=== PATIENT | female | born 1965 | race Caucasian/White ===

== ENCOUNTER 2020-02-19 08:03 | Observation (INO) ==
--- NOTE | 2020-02-07 08:25 | ANES ---
Anesthesia Pre Procedure Eval HOME MEDICATIONS acetaminophen 500 mg tablet 1,000 mg PO TID PRN tab 01/16/20 [Last Taken Unknown] albuterol sulfate 90 mcg/actuation aerosol inhaler 2 inh IH Q4H PRN 01/16/20 [Last Taken Unknown] atorvastatin 20 mg tablet 20 mg PO HS tab 01/16/20 [Last Taken Unknown] brexpiprazole 4 mg tablet 4 mg PO DAILY tab 01/16/20 [Last Taken Unknown] budesonide-formoterol HFA 80 mcg-4.5 mcg/actuation aerosol inhaler 2 inh IH BID g 01/16/20 [Last Taken Unknown] bupropion HCl 150 mg 24 hr tablet, extended release 150 mg PO QAM tab 01/16/20 [Last Taken Unknown] buspirone 15 mg tablet 15 mg PO TID tab 01/16/20 [Last Taken Unknown] doxepin 50 mg capsule 150 mg PO HS cap 01/16/20 [Last Taken Unknown] estradiol 2 mg tablet 2 mg PO DAILY tab 01/16/20 [Last Taken Unknown] famotidine 20 mg tablet 20 mg PO BID 01/16/20 [Last Taken Unknown] fluoride (sodium) 1.1 % dental gel 1 applic PO BID g 01/16/20 [Last Taken Un known] furosemide 20 mg tablet 40 mg PO BID tab 01/16/20 [Last Taken Unknown] gabapentin 400 mg capsule 400 mg PO TID cap 01/16/20 [Last Taken Unknown] lamotrigine 150 mg tablet 150 mg PO BID tab 01/16/20 [Last Taken Unknown] levothyroxine 100 mcg tablet 100 mcg PO DAILY tab 01/16/20 [Last Taken Unknown] mirabegron 50 mg tablet,extended release 24 hr 50 mg PO DAILY tab 01/16/20 [Last Taken Unknown] montelukast 10 mg tablet 10 mg PO DAILY tab 01/16/20 [Last Taken Unknown] tramadol 50 mg tablet 50 mg PO BID tab 01/16/20 [Last Taken Unknown] vilazodone 40 mg tablet 40 mg PO DAILY tab 01/16/20 [Last Taken Unknown] Allergies/Adverse Reactions: Allergies Allergy/AdvReac Type Severity Reaction Status Date / Time acetaminophen [From Percocet] Allergy Mild Nausea Verified 01/16/20 13:40 oxycodone HCl [From Percocet] Allergy Mild Nausea Verified 01/16/20 13:40 propoxyphene HCl Allergy Mild Nausea Verified 01/16/20 13:40 [From Darvon] - Planned Procedure Planned Procedure: L Arthroplasty Total Knee Medication List Reviewed:: Yes Allergies Verified: Yes Medical History (Last Reviewed 02/07/20 @ 08:24 by Darwin Chavis CRNA) Insomnia Onset Date: Unknown Anxiety Onset Date: Unknown Asthma Onset Date: Unknown Bipolar disorder Onset Date: Unknown COPD (chronic obstructive pulmonary disease) Onset Date: Unknown Depression Onset Date: Unknown GERD (gastroesophageal reflux disease) Onset Date: Unknown Hyperlipidemia Onset Date: Unknown Hypothyroidism Onset Date: Unknown Nerve pain Onset Date: Unknown Sleep apnea Onset Date: Unknown Surgical History (Last Reviewed 02/07/20 @ 08:24 by Darwin Chavis CRNA) H/O arthroscopy of left knee Onset Date: Unknown Dr. Gonsalez H/[place] arthroscopy of right knee Onset Date: Unknown Dr. Gonsalez H/O laparoscopy Onset Date: Unknown History of appendectomy Onset Date: ~1982 History of cholecystectomy Onset Date: ~2014 History of hysterectomy Onset Date: Unknown Family History (Last Reviewed 02/07/20 @ 08:24 by Darwin Chavis CRNA) Father , age 85 Heart disease Alzheimers disease Dementia Colon cancer Mother Heart disease - Family Anesthesia History Family History:: no untoward family reactions to anesthesia - Airway/Neck/Teeth Teeth Condition: intact - Respiratory Respiratory History: asthma, COPD Smoking Status: Former smoker Sleep Apnea currently treated: Yes Sleep Apnea by current assessment: Yes - Cardiovascular Cardiac History: hyperlipidemia Tolerate Activity: Fair - Gastrointestinal NPO since: mn - Anesthesia Assessment and Plan ASA Class: PS, III Anesthesia Type Plan: Spinal - adductor canal block
[~2020-02-19 08:03] MED LIST: MORPHINE SULFATE 15 MG TABLET.SA PO PRN; ROPIVACAINE HCL/PF 100 MG, EPINEPHrine 0.2 MG, KETOROLAC TROMETHAMINE 30 MG in NORMAL S... IJ PRN; TRANEXAMIC ACID 1,000 MG in NORMAL SALINE 100 ML IV PRN; ceFAZolin SODIUM 1 GM VIAL IV PRN
[2020-02-19] MEDS: RINGER'S SOLUTION,LACTATED 1,000 ML IV PRN ×3 (08:38→13:00)
[2020-02-19] MEDS ORDERED: PROPOFOL VIAL IV ONE (08:57)
[2020-02-19] MEDS ORDERED: LIDOCAINE HCL 20 ML VIAL ONE (08:57)
[2020-02-19] MEDS ORDERED: fentaNYL CITRATE/PF 50 MCG/ML AMPUL ONE (08:57)
[2020-02-19] MEDS ORDERED: ONDANSETRON HCL/PF 2 MG/ML VIAL ONE (08:57)
[2020-02-19] MEDS ORDERED: BUPIVACAINE HCL/EPINEPHRINE 50 ML VIAL ONE (08:58)
[2020-02-19] MEDS ORDERED: ceFAZolin SODIUM 1 GM VIAL ONE (09:04)
[2020-02-19] MEDS ORDERED: HYDROmorphone HCL 2 MG/ML VIAL IV PRN (10:00)
[2020-02-19] MEDS ORDERED: NALOXONE HCL 0.4 MG/ML VIAL IV PRN (10:00)
[2020-02-19] MEDS ORDERED: diphenhydrAMINE HCL 50 MG/ML VIAL IV PRN ×2 (10:00→12:44)
[2020-02-19] MEDS ORDERED: PROCHLORPERAZINE EDISYLATE 5 MG/ML VIAL IV PRN (10:00)
[2020-02-19] MEDS ORDERED: ONDANSETRON HCL/PF 2 MG/ML VIAL IV PRN ×2 (10:00→12:44)
[2020-02-19] MEDS ORDERED: ROCURONIUM BROMIDE 10 MG/ML VIAL ONE (11:34)
[2020-02-19] MEDS ORDERED: HYDROmorphone HCL 2 MG/ML VIAL ONE (11:34)
[2020-02-19] MEDS ORDERED: GLYCOPYRROLATE 0.2 MG/ML VIAL ONE (12:40)
[2020-02-19] MEDS ORDERED: NEOSTIGMINE METHYLSULFATE 1 MG/ML VIAL ONE (12:40)
[2020-02-19] MEDS ORDERED: ACETAMINOPHEN 500 MG TABLET PO PRN (12:44)
[2020-02-19] MEDS ORDERED: DEXTROSE 5%-LACTATED RINGERS 1,000 ML IV PRN (12:44)
[2020-02-19] MEDS ORDERED: ZOLPIDEM TARTRATE 5 MG TABLET PO PRN (12:44)
[2020-02-19] MEDS ORDERED: MORPHINE SULFATE 2 MG/ML DISP.SYRIN IV PRN (12:44)
[2020-02-19] MEDS ORDERED: MAG HYDROX/ALUMINUM HYD/SIMETH 30 ML UDC PO PRN (12:44)
[2020-02-19] MEDS ORDERED: MAGNESIUM HYDROXIDE 30 ML UDC PO PRN (12:44)
--- NOTE | 2020-02-19 12:44 | OR ---
Operative Report - Dictated Report Narrative: Date: 02/19/2020 Preoperative diagnosis: Left knee degenerative joint disease. Postoperative diagnosis: Left knee degenerative joint disease. Procedure: Left total knee arthroplasty. Surgeon: David Foster M.D. Roll Off Driver: Levi Muñoz PA-C (provided and essential set of skilled, educated hands that assisted with transfer, positioning, prepping, draping, manipulation, retraction, placement of jigs, injection, insertion of implants, irrigation, closure wounds, and dressings all of which could not be performed by the available surgical crew) Anesthesia: General with regional block and local periarticular joint injection. Complications: None Specimens: Bone. Estimated blood loss: 50 mL Tourniquet time: 100 Minutes at 350 millimeters of mercury. Retained implants: Depuy Attune size 4 left lugged cemented posterior stabilized femoral component. Size 5 fixed-bearing cemented tibial platform. 4 by 5 millimeter posterior stabilized cross-linked tibial insert. 38 millimeter medialized patella button. Indications: Mrs. Morales is a 55-year-old female who has had longstanding left knee pain and arthrosis. This patient was followed in my clinic for period of time with significant complaints of left knee pain consistent with arthritic changes. She had failed conservative measures including, but not limited to, activity modification, passage of time, medications, and other conservative measures. Patient wished to proceed with surgical treatment. The risks, benefits, and alternatives were discussed in clinic. The risks of , blood clots, bleeding, infection, nerve/tendon blood vessel/ injury, malposition of components, intraoperative fracture, postoperative limited range of motion, persistent pain, failure of components, and need for additional procedures. Patient wished to proceed consent was obtained after answering all questions. Procedure: After marking the correct extremity on the floor, the patient was taken to the operating room. A timeout was performed. IV antibiotics consisting of Ancef were administered prior to the procedure. A regional followed by spinal anesthetic was induced by anesthesia, per my request, on the operative table with all bony prominences well-padded. Lowry catheter was placed, and a bump was placed under the operative side buttock. SCDs and LAI hose were utilized on the nonoperative leg. A well-padded tourniquet was applied to the operative thigh. The operative leg was then pre-scrubbed with alcohol, prepped, and draped in a standard sterile fashion. After exsanguinating the extremity with an Esmarch bandage, the tourniquet was inflated. After marking out the anterior knee for standard incision centered over the patella, the skin was incised and dissected down to the joint retinaculum. The joint retinaculum was marked out as well as the horizontal axis of the patella, and a standard medial parapatellar arthrotomy was then made. The most proximal aspect of the quadriceps tendon and the patella tendon insertion were protected from release. A partial synovectomy was performed as well as a resection of the infrapatellar fat pad. The distal femoral fat pad proximal to the trochlea was also resected using cautery. The soft tissues were elevated off the medial aspect of the proximal tibia using a Strong elevator ensuring that we did not transect the medial collateral ligament. Upon initial evaluation range of motion was approximately 0 degrees to 110 degrees of flexion. There were signs of advanced arthrosis in the medial, lateral, and patellofemoral joint spaces. There were large marginal osteophytes which were removed with a rongeur. The knee was hyperflexed and the patella was tucked laterally. Protecting the surrounding soft tissues with Homans, an entry drill was placed down the femoral canal using Whitesides line for guidance into the entry point. The intramedullary femoral alignment howard was utilized in order to cut the distal femur in 5 degrees of valgus resecting 10 millimeters of bone. Next the distal femur was sized to a size 4. A posterior referencing guide was utilized to place the distal femoral cutting block in 3 degrees of external rotation. This was pinned into place. The rotation was confirmed both visually and based on anatomic landmarks. The 4 in 1 cutting jig of the appropriate size was utilized in order to make all bony cuts. The lisy wing was used to ensure no notching. Retractors were utilized in order to protect surrounding soft tissues. This cut did not result in any excessive notching. We then cut the box centered over the distal femur. This allowed for resection of the anterior and posterior cruciate ligaments. I then turned my attention to the preparation of the tibia. Using an extra medullary tibial alignment howard, 3 millimeters of bone was resected off the medial articular surface. This was made perpendicular to the mechanical axis of the joint with the alignment howard centered over the ankle mortise. The alignment howard was checked and was noted to be parallel to the mechanical axis, centered over the medial one third of the tibial tubercle, paralleling the anterior surface of the tibia. We then turned our attention to the remaining meniscus and soft tissues. These were removed while protecting the surrounding ligaments and soft tissues. The marginal osteophytes off the anterior, posterior, medial, lateral aspects of the femur and tibia were removed. The tibia was sized out to a size 5. Next the tibia was drilled and punched in an externally rotated position. Next the trial femur and a series of tibial inserts were utilized in order to allow for full extension and maximal flexion. It was found that a 5 millimeter insert gave the best range of motion and stability at multiple flexion points as well as at full extension there was less than 2 mm of gapping both medially and laterally. There is minimal anterior translation with the knee at 90 degrees of flexion and no signs of being able to dislocate the knee. The patella was then prepared. The initial thickness was 24 millimeters. This was reamed down to 14 millimeters parallel to the anterior surface of the patella. It was sized out to a size 38 medialized patella button. This was then drilled and trialed. Without any medial restraint the patella tracked appropriately and did not sublux or dislocate. At this point, it was felt these were the appropriate sized implants, and all trials were removed. The standard periarticular joint injection consisting of ropivacaine, Toradol, and epinephrine were injected into the periarticular joint tissues. The bony surfaces were thoroughly irrigated with a pulsatile-suction saline irrigation device. A bone plug from the prior resected anterior chamfer cut was placed into the drill hole at the distal femur. The bony surfaces were then dried in preparation for placement of the implants. The cement was vacuum mixed per the shingler's instructions. The cement was placed on the dry bony surfaces and posterior aspect of the implants. The implants were impacted into place, removing all extruded cement. At this point anesthesia administered tranexamic acid per protocol intravenously. The knee was placed in extension with axial loading with the trial insert while the cement cured. Once the cement cured, all remaining extruded cement was removed. The knee was placed through a range of motion with the trial insert to ensure appropriate range of motion and stability. Final range of motion was approximately 0 to 115 degrees. The knee was again thoroughly irrigated with pulsatile saline lavage. The final polyethylene insert was then impacted into place ensuring no retained soft tissues. The remaining periarticular joint injection was injected. A medium Hemovac drain was placed exiting superior laterally. The knee was then placed over a triangle and the arthrotomy was closed with interrupted #1 Vicryl after thoroughly irrigating the joint. The deep and subcutaneous tissues were closed with interrupted 0 and 3-0 Vicryl respectively. Skin was closed with a running subcutaneous 3-0 Monocryl and Prineo Dermabond dressing. 4 x 4's, Sof-Rol, and a full leg Quinn wrap were applied. All sponge, needle, blade, and instrument count s were correct prior to closing the wounds. Postoperative condition: The patient was awoken and transferred to the postanesthesia care unit in stable condition. Plan is to be admitted to the inpatient medical/surgical floor postoperatively for 24 hours of IV antibiotics, physical therapy, occupational therapy, and medical comanagement. Patient will be weightbearing as tolerated with range of motion as tolerated. DVT prophylaxis will be with SCDs, LAI hose, and pharmacological anticoagulation. Anticipated hospital stay is approximately 1-3 days.
--- NOTE | 2020-02-19 13:53 | ANES ---
Post Anesthesia Discharge - Transfer of Care Transfer of Care handoff given to nurse: Yes - Discharge from PACU Discharge from PACU when meets criteria: Yes - Discharge to ASU Discharge to ASU-no complications/pt stable: Yes
--- NOTE | 2020-02-19 13:59 | ANES ---
Anesthesia Procedure Note Procedure Note: ANESTHESIA PROCEDURE NOTE Date of Procedure: 02/19/2020. Time of procedure: 954. Performed by: Ole Sandy CRNA Parts Cleaner: None. Preprocedure diagnosis: Left knee degenerative joint disease. Post procedure diagnosis: Same. Procedure: Left ultrasound guided adductor canal block for postoperative analgesia. Indications: The patient is a 55-year-old female, requesting left ultrasound- guided abductor canal block for postoperative analgesia related to left total knee arthroplasty. Findings: See below. Details of the procedure: The tissue over the intended target site was cleansed with ChloraPrepand draped in a sterile fashion. 2 ml Lidocaine 1 % was infiltrated to the skin and subcutaneous tissue at the intended target site. Under sterile technique and ultrasound guidance a 20-gauge block needle was inserted through the left sartorius muscle to the saphenous nerve just anterior and medial to the superficial femoral artery and vein. 15 mL's of 0.5% bupivacaine was injected after negative aspiration for blood. Needle tip and spread of local anesthetic surrounding the saphenous nerve was observed throughout the injection with real time ultrasound visualization. The needle was then removed intact. No complications were noted. The images were retained in the Hospital medical database. EBL: Minimal. Fluids: N/A. Specimen: N/A. Post procedure condition: The patient tolerated the procedure well. No complications were noted. Thank you for this consultation. Ole Sandy CRNA
[2020-02-19] MEDS: KETOROLAC TROMETHAMINE 15 MG/ML VIAL IV SCH ×2 (14:32→19:56)
[2020-02-19] MEDS: ceFAZolin SODIUM 1 GM in DEXTROSE 5 % IN WATER 100 ML IV SCH ×4 (14:38→21:33)
[2020-02-19] MEDS: GABAPENTIN 400 MG CAPSULE PO SCH ×2 (14:45→17:03)
[2020-02-19] MEDS: busPIRone HCL 5 MG TABLET PO SCH ×2 (14:45→17:03)
[2020-02-19] MEDS: MORPHINE SULFATE 10 MG/0.5 ML SYRINGE PO PRN ×2 (16:58→19:54)
[2020-02-19] MEDS ORDERED: ROSUVASTATIN CALCIUM 10 MG TABLET PO SCH (21:00)
[2020-02-19] MEDS ORDERED: DOXEPIN HCL 25 MG CAPSULE PO SCH (21:00)
[2020-02-19] MEDS ORDERED: SENNOSIDES/DOCUSATE SODIUM 1 TAB TABLET PO SCH (21:00)
[2020-02-19] MEDS: MORPHINE SULFATE 15 MG TABLET.SA PO SCH (21:35)
[2020-02-19] MEDS: lamoTRIgine 100 MG TABLET PO SCH (21:35)
[2020-02-19] MEDS: FAMOTIDINE 20 MG TABLET PO SCH (21:35)
[2020-02-19] MEDS: FUROSEMIDE 20 MG TABLET PO SCH (21:37)
[2020-02-20] MEDS: KETOROLAC TROMETHAMINE 15 MG/ML VIAL IV SCH ×3 (00:19→12:14)
[2020-02-20] MEDS: MORPHINE SULFATE 10 MG/0.5 ML SYRINGE PO PRN ×4 (00:29→14:36)
[2020-02-20] MEDS: ceFAZolin SODIUM 1 GM in DEXTROSE 5 % IN WATER 100 ML IV SCH ×2 (03:45)
[2020-02-20] MEDS ORDERED: SUCCINYLCHOLINE CHLORIDE 20 MG/ML VIAL ONE (06:38)
[2020-02-20 06:46] LABS: Hematocrit 33.3 % (37.0-47.0); Hemoglobin 10.3 gm/dL (12.5-16.0); Mean Cell Volume 96.8 fl (78-100); Mean Corpuscular Hemoglobin 29.9 pg (27-31); Mean Corpuscular Hgb Conc 30.9 g/dl (32-36); Mean Platelet Volume 10.2 fl (8-12.5); Platelet Count 216 K/mm3 (150-450); Red Blood Count 3.44 M/mm3 (4.2-5.4); Red Cell Distribution Width 14.2 % (11.5-14.0); White Blood Count 5.9 K/mm3 (4.0-10.5)
[2020-02-20 06:54] LABS: BUN/Creatinine Ratio 9.7 (9.0-21.6); Calcium * 8.2 mg/dL (7.9-10.9); Carbon Dioxide 30.5 mmol/L (24-32.6); Estimated Creat Clear 45.5; Potassium 3.5 mmol/L (3.4-4.6)
[2020-02-20] MEDS ORDERED: LEVOTHYROXINE SODIUM 100 MCG TABLET PO SCH (07:00)
[2020-02-20] MEDS: MORPHINE SULFATE 15 MG TABLET.SA PO SCH (08:02)
[2020-02-20] MEDS: lamoTRIgine 100 MG TABLET PO SCH (08:02)
[2020-02-20] MEDS: GABAPENTIN 400 MG CAPSULE PO SCH ×2 (08:03→12:14)
[2020-02-20] MEDS: busPIRone HCL 5 MG TABLET PO SCH ×2 (08:03→12:14)
[2020-02-20] MEDS: FAMOTIDINE 20 MG TABLET PO SCH (08:03)
[2020-02-20] MEDS: FUROSEMIDE 20 MG TABLET PO SCH (08:06)
[2020-02-20] MEDS ORDERED: MIRABEGRON 25 MG TAB.PO.ER PO SCH (09:00)
[2020-02-20] MEDS ORDERED: buPROPion HCL 150 MG TAB.SR.24H PO SCH (09:00)
[2020-02-20] MEDS ORDERED: MONTELUKAST SODIUM 10 MG TABLET PO SCH (09:00)
[2020-02-20] MEDS ORDERED: (Brexpiprazole [Rexulti] 4 MG) PO SCH (09:00)
[2020-02-20] MEDS ORDERED: ESTRADIOL 0.5 MG TABLET PO SCH (09:00)
--- NOTE | 2020-02-20 09:53 | DS ---
(1) Status post left knee replacement Problem: Acute (2) Obstructive sleep apnea Problem: Chronic (3) COPD (chronic obstructive pulmonary disease) Problem: Chronic (4) Hyperlipidemia Problem: Chronic (5) Hypothyroidism Problem: Chronic Date of Discharge:: 02/20/20 Hospital Course: Ms. Morales was admitted to the floor after undergoing left total knee arthroplasty. Tolerated this well. Was admitted to the floor postoperatively for 24 hours of IV antibiotics, pain control, medical comanagement, and occupational and physical therapy. OT and PT were consulted to assist with activities of daily living and ambulation. Was made weightbearing as tolerated with range of motion as tolerated. Pain was initially controlled with IV regimen. This was transitioned to oral once tolerating a by mouth intake. Was resumed on home diet and medications. Had a Lowry catheter inserted and the operating room which was discontinued on postoperative day 1. A drain was placed intraoperatively into the knee which was discontinued on postoperative day 1. Lovenox SCD and LAI hose were utilized for DVT prophylaxis. Vital signs remained stable to the hospital course. Serial labs were obtained which showed a final hemoglobin of 10.3 grams. BMP was reviewed and was stable. Physical examination throughout the hospital course showed an extremity that had sensation that was intact to light touch, palpable pulses, a benign wound, motor intact to the toes, ankle, and knee. Knee range of motion was approximately 5 degrees to 70 degrees. Once an oral pain regimen was tolerated and physical therapy goals were met, it was felt that they were stable for discharge to home. Instructions: Continue with weightbearing as tolerated and range of motion as tolerated. It is OK to shower on the wound if it is not draining. If you note any drainage or for comfort you can cover with dry gauze and tape. Change every 2-3 days as nee ded. Continue with physical therapy. Resume home diet. Report any fever over 101.5 Fahrenheit, uncontrolled pain, increased drainage, foul odor of drainage, new or increased calf pain or shortness of breath, or any other significant complaints. A 325mg dialy aspirin will be started after finishing anticoagulation if not allergic. Continue with LAI hose on the operative extremity until instructed otherwise. No driving until instructed otherwise. Follow up in approximately 10-14 days. Procedures Performed: see notes below List Procedures: Left total knee arthroplasty Results and Findings: Lab Pending Results 02/20/20 06:00: WBC 5.9, RBC 3.44 L, Hgb 10.3 L, Hct 33.3 L, MCV 96.8, MCH 29.9, MCHC 30.9 L, RDW 14.2 H, Plt Count 216, MPV 10.2 02/20/20 06:00: Sodium 136, Plasma Sodium 136, Potassium 3.5, Chloride 99, Carbon Dioxide 30.5, Anion Gap 10.0, BUN 13, Creatinine 1.34, Est GFR (Non-Af Amer) 43 L, BUN/Creatinine Ratio 9.7, Random Glucose 100, Calcium 8.2 Discharge Location: Home Disposition: Home self-care Condition: Good Discharge Activity: Activity as tolerated, Weight bearing, Other - With wheeled walker Discharge Diet: Low fat/chol Additional Patient Instructions (free text): Please review discharge instructions. Physical Therapy at [facility] on February 18 at 12:30pm. Please fax demographics and PT order to fax# [phone]. Follow up [facility] Orthopedic office appointment on WednesdayMarch 12 at 9:00am. Please call Dr. Foster with any questions or concerns at [phone]. Prescriptions (Any new or edited meds): Enoxaparin Sodium [Lovenox] 40 mg SC Q24H #7 disp.syrin Transmission Status: Pending to [facility] #[id number] Morphine Sulfate 1 - 2 tab PO Q4H PRN #60 tab PRN Reason: Pain Transmission Status: Sent to [facility] #[id number] Morphine Sulfate [Ms Contin] 15 mg PO Q12H #14 tablet.sa Transmission Status: Sent to [facility] #[id number] Sennosides/Docusate Sodium [Senokot-S] 2 tab PO HS #30 tab Transmission Status: Pending to [facility] #[id number] Complete Home Medications List: Complete Home Medication List: acetaminophen 500 mg tablet 1,000 mg PO TID PRN tab 01/16/20 albuterol sulfate 90 mcg/actuation aerosol inhaler 2 inh IH Q4H PRN 01/16/20 atorvastatin 20 mg tablet 20 mg PO HS tab 01/16/20 brexpiprazole 4 mg tablet 4 mg PO DAILY tab 01/16/20 budesonide-formoterol HFA 80 mcg-4.5 mcg/actuation aerosol inhaler 2 inh IH BID g 01/16/20 bupropion HCl 150 mg 24 hr tablet, extended release 150 mg PO QAM tab 01/16/20 buspirone 15 mg tablet 15 mg PO TID tab 01/16/20 doxepin 50 mg capsule 150 mg PO HS cap 01/16/20 estradiol 2 mg tablet 2 mg PO DAILY tab 01/16/20 famotidine 20 mg tablet 20 mg PO BID 01/16/20 fluoride (sodium) 1.1 % dental gel 1 applic PO BID g 01/16/20 furosemide 20 mg tablet 40 mg PO BID tab 01/16/20 gabapentin 400 mg capsule 400 mg PO TID cap 01/16/20 lamotrigine 150 mg tablet 150 mg PO BID tab 01/16/20 levothyroxine 100 mcg tablet 100 mcg PO DAILY tab 01/16/20 mirabegron 50 mg tablet,extended release 24 hr 50 mg PO DAILY tab 01/16/20 montelukast 10 mg tablet 10 mg PO DAILY tab 01/16/20 tramadol 50 mg tablet 50 mg PO BID tab 01/16/20 vilazodone 40 mg tablet 40 mg PO DAILY tab 01/16/20 Enoxaparin Sodium [Lovenox] 40 mg SC Q24H #7 disp.syrin 02/20/20 Morphine Sulfate 1 - 2 tab PO Q4H PRN #60 tab 02/20/20 Morphine Sulfate [Ms Contin] 15 mg PO Q12H #14 tablet.sa 02/20/20 Sennosides/Docusate Sodium [Senokot-S] 2 tab PO HS #30 tab 02/20/20 Amb Orders for Discharge: PT Evaluation and Treatment* Facility: [facility], Location: Rehabilitation Services Forms: Patient Portal Registration
[2020-02-20] MEDS ORDERED: ENOXAPARIN SODIUM 40 MG/0.4 ML SYRG SC SCH (11:44)
[2020-02-20 16:20] VITALS: BP 155/88
--- NOTE | 2020-02-20 16:32 | ANES ---
Post Anesthesia Assessment - Vital Signs Vitals: Last Vital Signs Temp 37.1 C 02/20/20 16:16 Pulse 87 02/20/20 16:16 Resp 18 02/20/20 16:16 BP 155/88 H 02/20/20 16:16 Pulse Ox 93 02/20/20 16:16 Airway Patency: Normal - Mental Status Level Of Consciousness: Awake - Pain Level Pain Score: 3 - N/V Assessment Nausea/Vomiting Presence: None Dehydration:: No
== END 2020-02-20 16:30 | disposition home or self-care (01) ==
LOC: MS 08:03 → SUR 08:03
PROVIDERS: ADMIT Orthopaedic Surgery; ATTEND Orthopaedic Surgery